=== PATIENT | male | born 1990 | race Caucasian/White ===

== ENCOUNTER 2016-10-10 21:11 | Emergency (ER) | payer OTHER ==
[~2016-10-10] VITALS: Ht 170.2 cm; Wt 86.2 kg
[2016-10-10 21:24] VITALS: BP 148/91
--- NOTE | 2016-10-10 21:37 | NUR ---
PT TAKEN TO [facility]
--- NOTE | 2016-10-10 21:44 | NUR ---
Dr. Vega evaluating patient
--- NOTE | 2016-10-10 21:52 | NUR ---
PT BIB SELF C/O BILAT EYE PAIN S/P REDNESS, SWELLING AND PAIN WITH DISCHARGE ON BOTH EYE SINCE TUESDAY. HE HAS DISCHARGE FROM HIS PENIS SINCE TUESDAY. PT DENIES N/V/D; SKIN IS INTACT, PINK/WARM/DRY; AAOX4, PERRL, WITH EVEN AND STEADY GAIT; LUNGS CLEAR BL, BREATHING UNLABORED; HR EVEN AND REGULAR, BL PERIPHERAL PULSES PRESENT; BS ACTIVE X4, NO TENDERNESS TO PALPATION. PT DENIES ANY FEVER, CP, SOB, OR COUGH AT THIS TIME; PT STATES 5/10 PAIN AT THIS TIME; VSS; PATIENT POSITIONED FOR COMFORT; HOB ELEVATED; BEDRAILS UP X2; BED DOWN.
--- NOTE | 2016-10-10 21:56 | NUR ---
Patient discharged with v/s stable. Written and verbal after care instructions given and explained. Patient alert, oriented and verbalized understanding of instructions. Ambulatory with steady gait. All questions addressed prior to discharge. ID band removed. Patient advised to follow up with PMD. Rx of GENTAMICIN 0.3% QID given. Patient educated on indication of medication including possible reaction and side effects. Opportunity to ask questions provided and answered.
[2016-10-10 22:04] VITALS: BP 140/85
== END 2016-10-10 21:56 | disposition home or self-care (01) ==
LOC: MED 21:11
DX: H10.89 Other conjunctivitis (principal); R03.0 Elevated blood-pressure reading, without diagnosis of hypertension
CPT/HCPCS: 99283

== ENCOUNTER 2018-07-28 07:09 | Emergency (ER) | payer OTHER ==
[~2018-07-28] VITALS: Ht 170.2 cm; Wt 81.6 kg
[2018-07-28 07:09] VITALS: BP 143/100
--- NOTE | 2018-07-28 07:09 | NUR ---
PATIENT AMBULATED TO ER BED 4.
--- NOTE | 2018-07-28 07:15 | NUR ---
PATIENT IS A 28 Y/O MALE WHO PRESENTS TO THE ED C/O URINARY BURNING/UTI SX'S. PER PT, PT HAD UNPROTECTED X10 EPISODES WITHIN THE PAST WEEK AND IS EXPERIENCING PAIN. PT IS REQUESTING TESTING. PT REPORTS 9/10 BURNING PAIN THAT DOES NOT RADIATE. PT DENIES CP, SOB, N/V/D. PT AWAKE AND ALERT, RR EVEN/UNLABORED. PT REPOSITIONED FOR COMFORT, BED IN LOWEST POSITION. ER MD DR. PEREZ NOTIFIED. WILL CONTINUE TO MONITOR.
--- NOTE | 2018-07-28 07:43 | NUR ---
URINE COLLECTED BY PT AT THIS TIME. Addendum: 07/28/18 at 0745 by [facility] URINE COLLECTED URINE AT THIS TIME.
[2018-07-28] MEDS ORDERED: cefTRIAXone 250 MG in LIDOCAINE MPF 1% - 5 mL VIAL 0.9 ML IM ONE (07:45)
[2018-07-28] MEDS ORDERED: AZITHROMYCIN 250 MG TAB PO ONE (07:45)
--- NOTE | 2018-07-28 09:00 | NUR ---
REPORT RECIEVED FROM HITESH ANN
[2018-07-28 09:23] VITALS: BP 140/98
--- NOTE | 2018-07-28 10:05 | NUR ---
pt left without discharge instructions
[2018-08-01 06:16] LABS: CHLAMYDIA TRACHOMATIS AMP DNA Positive (Negative)
== END 2018-07-28 10:05 | disposition left against medical advice (07) ==
LOC: MED 07:09
DX: N34.2 Other urethritis (principal); B96.89 Other specified bacterial agents as the cause of diseases classified elsewhere
CPT/HCPCS: 36415; 81002; 86592; 86702; 86703; 96372; 99283; J0696; J2001; 87491

== ENCOUNTER 2023-12-27 12:13 | Emergency (ER) | payer MEDICAID, OTHER ==
[~2023-12-27] VITALS: Ht 172.7 cm; Wt 94.5 kg
[2023-12-27 12:34] VITALS: BP 14/97; PULSE 89; RESP 16; TEMP 98.2; O2SAT 98
[2023-12-27] MEDS ORDERED: SULF-59 PO (13:50)
[2023-12-27] MEDS ORDERED: IBUP-1801 PO (13:50)
[2023-12-27] MEDS ORDERED: CEPH-588 PO (13:50)
[2023-12-27] MEDS ORDERED: cefTRIAXone 1,000 MG VIAL ONE (13:51)
[2023-12-27] MEDS ORDERED: LIDOCAINE MPF 1% 5 ML ONE (13:51)
[2023-12-27] MEDS: cefTRIAXone 1,000 MG in LIDOCAINE MPF 1% 2.1 ML IM ONE (14:01)
[2023-12-27] MEDS: KETOROLAC 30 MG/ML VIAL IM ONE (14:02)
--- NOTE | 2023-12-27 14:20 | NUR ---
Patient discharged with v/s stable. Written and verbal after care instructions given FOR CELLULITIS Patient alert, oriented and verbalized understanding of instructions. Ambulatory with steady gait. All questions addressed prior to discharge. ID band removed. Patient advised to follow up with PMD. Rx of KEFLEX,IBUPROFEN,BACTRIM given. Opportunity to ask questions provided and answered.
== END 2023-12-27 14:20 | disposition home or self-care (01) ==
LOC: MED 12:13
DX: L03.115 Cellulitis of right lower limb (principal); Z79.899 Other long term (current) drug therapy
CPT/HCPCS: 96372; 99284; J0696; J1885; J2001